=== PATIENT | male | born 1985 | race Caucasian/White ===

== ENCOUNTER 2017-05-28 04:11 | Emergency (ER) | payer BC, OTHER ==
[2017-05-28] MEDS ORDERED: Mag-Al Plus 1200 MG/1200 MG/120 MG/30 ML UDCUP ONE (04:25)
[2017-05-28] MEDS ORDERED: Lidocaine Viscous Sol 2% 15 ml UD Cup ONE (04:25)
== END 2017-05-28 05:09 | disposition home or self-care (01) ==
LOC: SCSER 04:11
DX: K29.00 Acute gastritis without bleeding (principal); K21.9 Gastro-esophageal reflux disease without esophagitis; F43.10 Post-traumatic stress disorder, unspecified; F17.220 Nicotine dependence, chewing tobacco, uncomplicated

== ENCOUNTER 2017-05-28 12:54 | Outpatient (CLI) | payer OTHER ==
--- NOTE | 2017-05-28 15:31 | CT ---
CT ABDOMEN AND PELVIS WITH ORAL AND IV CONTRAST: HISTORY: A 31-year-old male with abdominal pain. GERD. FINDINGS: The lung bases are clear. The liver, spleen, pancreas, adrenal glands, and kidneys are normal. No c alcified gallstones are seen. No free air, free fluid, or lymphadenopathy is noted in the abdomen or pelvis. The small bowel loops are not abnormally dilated. A normal appearing appendix is present. No osteolytic or osteoblastic lesions are noted. IMPRESSION: No significant abnormalities are identified. POS: [facility]
== END 2017-05-28 12:55 | disposition home or self-care (01) ==
LOC: CT 12:54
PROVIDERS: ATTEND Family Medicine
DX: R10.84 Generalized abdominal pain (principal); K21.9 Gastro-esophageal reflux disease without esophagitis; T75.4XXA Electrocution, initial encounter
CPT/HCPCS: 74177; 99283

== ENCOUNTER 2018-04-24 21:31 | Emergency (ER) | payer OTHER ==
[2018-04-24] MEDS ORDERED: Dexamethasone 4 mg/ml Vial ONE ×2 (22:05→23:21)
[2018-04-24 22:14] LABS: #Basophils 0.1 thou/uL (0.0-0.2); #Eosinphils 0.4 thou/uL (0.0-0.7); #Lymphocytes 2.5 thou/uL (1.20-3.40); #Monocytes 0.7 thou/uL (0.11-0.59); %Basophils 1.4 % (0.0-1.0); %Eosinophils 5.3 % (0.0-10.0); %Lymphocytes 32.4 % (21.0-51.0); %Monocytes 9.1 % (0.0-10.0); %Neutrophils 51.8 % (42.0-75.0); Hemoglobin 17.5 g/dL (14.0-18.0); Mean Corpuscular Hemoglobin 31.5 pg (27.0-31.0); Platelet Count 300 thou/uL (130-400); RBC Distribution Width 11.8 % (11.5-14.5); Red Blood Cell (RBC) Count 5.54 mill/uL (4.70-6.10); White Blood Cell (WBC) Count 7.7 thou/uL (4.8-10.8)
[2018-04-24] MEDS ORDERED: Methocarbamol 1 GM/10 ML VIAL SLOW IVP SCH (22:15)
[2018-04-24 22:36] LABS: ALT (SGPT) 74 U/L (8-55); AST (SGOT) 40 U/L (5-34); Albumin 5.1 g/dL (3.5-5.0); Alkaline Phosphatase 62 U/L (40-150); Anion Gap 13 mmol/L (10-20); BUN (Urea Nitrogen) 11 mg/dL (8.9-20.6); Bilirubin, Total 0.7 mg/dL (0.2-1.2); Calc. Creatinine Clearance 0 mL/min (70-130); Calcium 10.4 mg/dL (7.8-10.44); Carbon Dioxide 26 mmol/L (22-29); Chloride 104 mmol/L (98-107); Estimated GFR-MDRD Greater than 90; Globulin 3.5 g/dL (2.4-3.5); Glucose 110 mg/dL (70-105); Potassium 3.7 mmol/L (3.5-5.1); Protein, Total 8.6 g/dL (6.0-8.3); Sodium 139 mmol/L (136-145)
--- NOTE | 2018-04-24 23:25 | MRI ---
MRI LUMBAR SPINE WITHOUT CONTRAST: 04/24/18 COMPARISON: Bilateral leg numbness and weakness. TECHNIQUE: Multiplanar and multisequence MRI images are obtained in a lumbar spine without contrast. FINDINGS: There is disc desiccation of the L4-5 intervertebral discs. The vertebral bodies demonstrate normal h eight and alignment without acute fracture or subluxation. The conus medullaris terminates normally a t L1. The prevertebral and paraspinal soft tissues are unremarkable. T12-L1 through L3-4: Unremarkable. L4-5: A small central protrusion is seen. No posterior facet arthrosis. Mild central canal stenosis. Mild bilateral neural foraminal stenosis. L5-S1: A small central protrusion is seen. No posterior facet arthrosis. No central canal stenosis. M ild bilateral neural foraminal stenosis. IMPRESSION: Small protrusions at L4-5 and L5-S1 with minimal central canal and neural foraminal stenosis. POS: [facility]
== END 2018-04-25 00:15 | disposition home or self-care (01) ==
LOC: ERS 21:31
DX: M54.5 Low back pain (principal); G89.29 Other chronic pain; K21.9 Gastro-esophageal reflux disease without esophagitis; Z87.891 Personal history of nicotine dependence; F43.10 Post-traumatic stress disorder, unspecified; Z79.899 Other long term (current) drug therapy
CPT/HCPCS: 36415; 72148; 80053; 85025; 96374; 96375; J1100; J2800